=== PATIENT | male | born 1965 | race Caucasian/White ===

== ENCOUNTER 2024-04-11 23:03 | Inpatient (IN) | payer OTHER, SELFPAY ==
[2024-04-11 23:07] VITALS: BP 168/101; PULSE 78; RESP 18; TEMP 36.6; O2SAT 98; BMI 30.4
--- NOTE | 2024-04-11 23:07 | EKG_ITS ---
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
--- NOTE | 2024-04-11 23:12 | DI.RAD.S_ITS ---
PROCEDURE: XR CHEST 1V INDICATIONS: chest pain TECHNIQUE: One view of the chest was acquired. COMPARISON: None. FINDINGS: Surgical changes and devices: None. Lungs and pleura: Lungs are clear. No pleural effusions or pneumothorax. Mediastinum: Mediastinal contours appear normal. Heart size is normal. Bones and chest wall: No suspicious bony lesions. Overlying soft tissues appear unremarkable. IMPRESSION: No acute pulmonary process. Dictated by: Libertad Lee M.D. on 04/12/2024 at 0:14 Approved by: Libertad Lee M.D. on 04/12/2024 at 0:14
[2024-04-11] MEDS: ASPIRIN 81 MG CHEW TAB 324 MG PO (23:15)
[2024-04-11 23:33] LABS: Add Manual Diff / Slide Review NO; Basophils Absolute Auto 0 /uL (0-100); Basophils Percent Auto 0.8 % (0-2); Eosinophils Absolute Auto 100 /uL (0-450); Eosinophils Percent Auto 2.6 % (2-4); Hematocrit 42.8 % (41-53); Hemoglobin 14.8 g/dL (13.5-17.5); Lymphocytes Absolute Auto 2100 /uL (1100-4500); Lymphocytes Percent Auto 36.8 % (25-40); Mean Corpuscular HGB Conc 34.4 % (30-36); Mean Corpuscular Hemoglobin 31.7 PG (26-34); Mean Corpuscular Volume 92.1 fL (80-100); Monocytes Absolute Auto 500 /uL (0-900); Neutrophils Absolute Auto 3000 /uL (1500-7000); Neutrophils Percent Auto 51.8 % (50-75); Platelet Count 193 X10^3/uL (150-400); Red Blood Cell Count 4.65 X10^6/uL (4.5-5.9); Red Cell Distribution Width 12.9 % (11.6-14.8); White Blood Cell Count 5.8 X10^3/uL (4.5-11.0)
[2024-04-11 23:39] LABS: INR 0.9 (0.9-1.3); Prothrombin Time 10.6 SECONDS (9.4-12.5)
[2024-04-11 23:41] LABS: PTT Partial Thromboplastin Tim 35 SECONDS (25.1-36.5)
[2024-04-11 23:43] LABS: Alanine Aminotransferase 112 IU/L (<50); Albumin 4.1 g/dL (3.5-5.0); Albumin Globulin Ratio 1.5 (1.0-2.8); Alkaline Phosphatase 41 U/L (38-126); Aspartate Aminotransferase 64 IU/L (17-59); BUN Creatinine Ratio 17.9 (6-22); Bilirubin Total 0.5 mg/dL (0.2-1.3); Blood Urea Nitrogen 14 mg/dL (9-20); Calcium 8.7 mg/dL (8.4-10.2); Carbon Dioxide 29 mmol/L (22-32); Chloride 101 mmol/L (98-107); Creatine Kinase 146 U/L (55-170); Estimated Glomerular Filt Rate > 60 mL/min (>60); Globulin 2.8 g/dL (1.7-4.1); Glucose 160 mg/dL (80-110); HEMOLYSIS 32 (0-50); Lipase 54 U/L (23-300); Magnesium 1.9 mg/dL (1.6-2.3); Potassium 3.8 mmol/L (3.4-5.1); Sodium 134 mmol/L (137-145); Total Protein 6.9 g/dL (6.3-8.2)
[2024-04-11 23:55] LABS: NT-proBNP (BNP-Adult 18+) < 20 pg/mL (<125); Troponin I < 0.012 ng/mL (0.01-0.034)
[2024-04-11 23:59] VITALS: BP 147/88; PULSE 78; O2SAT 98
[2024-04-12] VITALS: BP 146/86; PULSE 78; O2SAT 96
--- NOTE | 2024-04-12 00:09 | ED_ITS ---
HPI - Chest Pain General Chief Complaint: Chest Pain Stated Complaint: chest pain Time Seen by Provider: 04/11/24 23:39 Source: patient Mode of arrival: Ambulatory Limitations: no limitations History of Present Illness HPI narrative: Patient is a 58-year-old male. History of hypertension. No prior cardiac history. States that over the past several weeks and then progressively worsening over the past several days he has had burning in his chest with exertion. He stated that he noticed it a couple days ago when he was hiking just prior to [place]. States he was going uphill. Had burning in his chest. Some mild shortness of breath. And then when he sat and relaxed his symptoms improved. He has seen his primary doctor and there is a referral for him to have a outpatient stress test but he was not yet scheduled this. He currently is asymptomatic. No fevers. No abdominal pain or nausea and vomiting. Has not tried anything for symptoms prior to arrival. Related Data Home Medications Medication Instructions Recorded Confirmed ibuprofen 800 mg tablet 800 mg PO Q8HP ##0 01/01/12 04/12/24 olmesartan 40 mg tablet 40 mg PO DAILY 04/12/24 04/12/24 Allergies Allergy/AdvReac Type Severity Reaction Status Date / Time ALL NARCOTICS Allergy Mild ITCHY Uncoded 07/26/17 11:54 Review of Systems Review of Systems ROS Unobtainable: All systems reviewed & are unremarkable except as noted in HPI and below Patient History Social History household members: spouse and children Smoking Status: Never smoker Smoking Status: Never smoker Exam Initial Vital Signs Initial Vital Signs: Vital Signs Temperature 98 F 04/11/24 23:07 Pulse Rate 78 04/11/24 23:07 Respiratory Rate 18 04/11/24 23:07 Blood Pressure 168/101 H 04/11/24 23:07 Pulse Oximetry 98 04/11/24 23:07 Oxygen Delivery Method Room Air 04/11/24 23:07 Const General: cooperative, comfortable and No ill appearing HENMT Head: normal to inspection and normocephalic Resp Effort & Inspection: normal respiratory effort Auscultation: clear to auscultation bilaterally Cardio Rate: regular rate Rhythm: regular rhythm Skin General: no rashes or lesions noted Neuro General: patient alert, patient awake, patient oriented x3 and moves all extremities Extrem General: No edema Course Orders Ordered: ED Orders 04/11/24 23:07 EKG-12 Lead Stat 04/11/24 23:12 XR chest 1V Stat 04/11/24 23:26 Complete Blood Count AUTO DIFF Stat Comprehensive Metabolic Panel Stat Lipase Stat Magnesium Stat NT-proBNP (BNP-Adult 18+) Stat PTT Partial Thromboplastin [place] Stat Prothrombin Time INR Stat Troponin & CK Cardiac Panel Stat 04/11/24 23:30 EKG-12 Lead Routine Acetaminophen (Acetaminophen 325 Mg Tablet) 650 mg PO Q6H PRN PRN Reason: Fever/Mild Pain (1-3) Enoxaparin Sodium (Enoxaparin 40 Mg/0.4 Ml Syringe) 40 mg SUBCUT DAILY SUSAN Lisinopril (Lisinopril 5 Mg Tablet) 5 mg PO DAILY SUSAN Morphine Sulfate (Morphine 4 Mg/Ml Inj) 3 mg IV Q2HR PRN PRN Reason: Pain, Severe (7-10) Naloxone HCl (Naloxone 0.4 Mg/Ml Vial) 0.2 mg IV Q2MIN PRN PRN Reason: Opiate Reversal Ondansetron HCl (Ondansetron 4 Mg/2 Ml Inj) 4 mg IV Q8HR PRN PRN Reason: Nausea And Vomiting Oxycodone HCl (Oxycodone Ir 5 Mg Tablet) 5 mg PO Q3H PRN PRN Reason: Pain, Moderate (4-6) Discontinued Medications Aspirin (Aspirin 81 Mg Chew Tab) 324 mg PO NOW ONE Stop: 04/11/24 23:13 Last Admin: 04/11/24 23:15 Dose: 243 mg Documented By: DAMARI Vital Signs Vital signs: Vital Signs - 8 hr 04/11/24 23:07 04/11/24 23:59 04/11/24 23:59 Temperature 98 F Pulse Rate 78 78 Respiratory Rate 18 Blood Pressure 168/101 H 147/88 H Pulse Oximetry 98 98 Oxygen Delivery Method Room Air 04/12/24 00:00 04/12/24 00:00 Temperature Pulse Rate 78 Respiratory Rate Blood Pressure 146/86 H Pulse Oximetry 96 Oxygen Delivery Method Room Air MDM - Chest Pain Lab Data Attestation: I reviewed the patient's lab results. 04/11/24 23:26 04/11/24 23:26 Labs: Lab Results 04/11/24 Range/Units 23:26 WBC 5.8 (4.5-11.0) X10^3/uL RBC 4.65 (4.5-5.9) X10^6/uL Hgb 14.8 (13.5-17.5) g/dL Hct 42.8 (41-53) % MCV 92.1 (80-100) fL MCH 31.7 (26-34) PG MCHC 34.4 (30-36) % RDW 12.9 (11.6-14.8) % Plt Count 193 (150-400) X10^3/uL Neut % (Auto) 51.8 (50-75) % Lymph % (Auto) 36.8 (25-40) % [place] % (Auto) 8.0 (3-14) % Eos % (Auto) 2.6 (2-4) % Baso % (Auto) 0.8 (0-2) % Neut # (Auto) 3000 (0153-1707) /uL Lymph # (Auto) 2100 (4632-8817) /uL [place] # (Auto) 500 (0-900) /uL Eos # (Auto) 100 (0-450) /uL Baso # (Auto) 0 (0-100) /uL PT 10.6 (9.4-12.5) SECONDS INR 0.9 (0.9-1.3) APTT 35 (25.1-36.5) SECONDS Sodium 134 L (137-145) mmol/L Potassium 3.8 (3.4-5.1) mmol/L Chloride 101 (98-107) mmol/L Carbon Dioxide 29 (22-32) mmol/L BUN 14 (9-20) mg/dL Creatinine 0.78 (0.66-1.25) mg/dL Estimated GFR > 60 (>60) mL/min BUN/Creatinine Ratio 17.9 (6-22) Glucose 160 H (80-110) mg/dL Calcium 8.7 (8.4-10.2) mg/dL Magnesium 1.9 (1.6-2.3) mg/dL Total Bilirubin 0.5 (0.2-1.3) mg/dL AST 64 H (17-59) IU/L ALT 112 H (<50) IU/L Alkaline Phosphatase 41 (38-126) U/L Total Creatine Kinase 146 (55-170) U/L Troponin I < 0.012 (0.01-0.034) ng/mL NT-Pro-B Natriuret Pep < 20 (<125) pg/mL Total Protein 6.9 (6.3-8.2) g/dL Albumin 4.1 (3.5-5.0) g/dL Globulin 2.8 (1.7-4.1) g/dL Albumin/Globulin Ratio 1.5 (1.0-2.8) Lipase 54 (23-300) U/L Imaging Data Chest x-ray: Radiologist's Impression: PROCEDURE: XR CHEST 1V INDICATIONS: chest pain TECHNIQUE: One view of the chest was acquired. COMPARISON: None. FINDINGS: Surgical changes and devices: None. Lungs and pleura: Lungs are clear. No pleural effusions or pneumothorax. Mediastinum: Mediastinal contours appear normal. Heart size is normal. Bones and chest wall: No suspicious bony lesions. Overlying soft tissues appear unremarkable. IMPRESSION: No acute pulmonary process. ECG Data Interpretation: Sinus rhythm Ventricular rate is 75 First-degree AV block CO interval of 2 on 2 milliseconds Normal QRS No ST T wave changes MDM Narrative Medical decision making narrative: Labs are unremarkable to include a negative troponin. Has a nonischemic EKG. Chest x-ray is unremarkable. He is asymptomatic. No fevers. He has a referral in to have an outpatient cardiac workup to include a stress test however I discussed the possibility of admitting him today for his exertional chest discomfort. Patient opted to be admitted to the hospital. I discussed the case with Dr. Harrison hospitalist on-call who will admit. Patient expressed understanding and agreement with plan. Discharge Plan Departure Patient Disposition: Admitted as Observation Clinical Impression: Chest pain, Hypertension Admit Date/Time: 04/12/24 00:16 Admit Provider: Yared Aleman
[2024-04-12 00:28] VITALS: BMI 30.4
--- NOTE | 2024-04-12 00:36 | P.HP_ITS ---
History of Present Illness History of Present Illness Date Patient Seen: 04/12/24 Chief complaint: chest pain Narrative: 58 y/o with PMH of HTN, developed episodic exertional dyspnea and burning-like pain across the chest earlier this summer. He was waiting for outpatient stress test that was pending scheduling.Today pain was stromger then usual and he decided to come to hospital. Initial ED workup negative for ACS. Placed in observation, on telemetry, for nuclear stress test in the morning. [facility] Social History household members: spouse and children Smoking Status: Never smoker Meds Home Medications and Allergies Home Medications Medication Instructions Recorded Confirmed Type ibuprofen 800 mg tablet 800 mg PO Q8HP ##0 01/01/12 04/12/24 History olmesartan 40 mg tablet 40 mg PO DAILY 04/12/24 04/12/24 History Allergies Allergy/AdvReac Type Severity Reaction Status Date / Time ALL NARCOTICS Allergy Mild ITCHY Uncoded 07/26/17 11:54 Review of Systems Constitutional Comments: w/o fever, chills, generalized weakness, weight changes Cardiovascular Comments: pressure, burning-like pain, exertional dyspnea Respiratory Comments: w/o cough Genitourinary Comments: w/o voiding difficulties Musculoskeletal Comments: w/o myalgia Hematologic/Lymphatic Comments: w/o easy bruising or bleeding Exam Vital Signs (past 8 hours): - 04/11/24 23:07 04/11/24 23:59 04/11/24 23:59 Temperature 98 F Pulse Rate 78 78 Respiratory Rate 18 Blood Pressure 168/101 H 147/88 H Pulse Oximetry 98 98 Oxygen Delivery Method Room Air 04/12/24 00:00 04/12/24 00:00 Temperature Pulse Rate 78 Respiratory Rate Blood Pressure 146/86 H Pulse Oximetry 96 Oxygen Delivery Method Room Air Oxygen Delivery Method Room Air Narrative Exam Narrative: in no distress, at bedside HENMT Other: normocephalic Neck Other: supple Resp Other: normal respiratory effort Cardio Other: RRR GI Other: w/o distension Skin Other: w/o rashes Neuro Other: w/o deficits Extrem Other: w/o swelling Psych Other: lucid, appropriate mood and affect Objective ECG Impression: NSR, non-ischemic Labs 04/11/24 23:26 04/11/24 23:26 Labs: Laboratory Results - last 24 hr 04/11/24 23:26 WBC 5.8 RBC 4.65 Hgb 14.8 Hct 42.8 MCV 92.1 MCH 31.7 MCHC 34.4 RDW 12.9 Plt Count 193 Neut % (Auto) 51.8 Lymph % (Auto) 36.8 [place] % (Auto) 8.0 Eos % (Auto) 2.6 Baso % (Auto) 0.8 Neut # (Auto) 3000 Lymph # (Auto) 2100 [place] # (Auto) 500 Eos # (Auto) 100 Baso # (Auto) 0 PT 10.6 INR 0.9 APTT 35 Sodium 134 L Potassium 3.8 Chloride 101 Carbon Dioxide 29 BUN 14 Creatinine 0.78 Estimated GFR > 60 BUN/Creatinine Ratio 17.9 Glucose 160 H Calcium 8.7 Magnesium 1.9 Total Bilirubin 0.5 AST 64 H ALT 112 H Alkaline Phosphatase 41 Total Creatine Kinase 146 Troponin I < 0.012 NT-Pro-B Natriuret Pep < 20 Total Protein 6.9 Albumin 4.1 Globulin 2.8 Albumin/Globulin Ratio 1.5 Lipase 54 Assessment & Plan Assessment and plan (1) Hypertension: Status: Acute (2) Chest pain: Status: Acute Assessment & Plan narrative: Chest Pain / Exertional Dyspnea - progressive - chest pain equivalent? - given ASA - lipids pending - placed in observation on telemetry - nuclear stress test pending HTN - started Lisinopril 10 mg daily - olmesartan 40 mg daily at home DVT prophylaxis - Lovenox Time-Based Coding :: [TOTAL MINUTES] spent with patient and on the chart (including review of chart, obtaining history, exam, reviewing outside data, placing orders, documenting exam and treatment plan, and counseling patient) on [DATE].
[2024-04-12 02:43] VITALS: BP 144/86; PULSE 74; RESP 20; TEMP 36.9; O2SAT 96
[2024-04-12 05:41] LABS: Cholesterol 230 mg/dL (140-199); HDL Cholesterol 40 mg/dL (40-60); LDL Cholesterol Calculated 169 mg/dL (<100); Triglycerides 107 mg/dL (35-150)
[2024-04-12 05:42] LABS: Hemoglobin A1C% w Est Avg Glu 5.6 % (4.0-6.0)
[2024-04-12 06:43] VITALS: BP 121/78; PULSE 71; RESP 20; TEMP 36.8; O2SAT 98
[2024-04-12 07:51] LABS: Troponin I 0.033 ng/mL (0.01-0.034)
[2024-04-12 09:06] LABS: Troponin I 0.027 ng/mL (0.01-0.034)
[2024-04-12 09:13] VITALS: BP 121/78; PULSE 71
[2024-04-12] MEDS: ENOXAPARIN 40 MG/0.4 ML SYRINGE SUBCUT (09:13)
[2024-04-12] MEDS: lisinopriL 10 MG TABLET PO (09:13)
--- NOTE | 2024-04-12 12:26 | CM.DANOTE ---
DCP Assessment Note: Pt is a 58yo male, resident of [place], is admitted for hypertension and chest pain. Pt lives in a house with his , Adri, and adult daughter. Pt's Primary Care Provider is Donna Kinsey NP at [facility] and insurance is [employer]. Reviewed chart and team rounds for pt's medical status and initial discharge needs. Per hospitalist, pt dc is pending stress test results and possible cardiology referral. DCP attempted to meet w/patient at bedside who was at [facility] at time, pt able to answer questions for assessment. Pt confirmed pt's living arrangements and reported a preference for discharge home after stress test as she discussed with provider. Pt confirmed pt is independent at baseline. Pt could not identify any needs for discharge. Plan: Anticipating discharge home with spouse, upon medical clearance post stress test. CM team will follow closely for coordination of discharge plans. Ashley Rogers [facility] Discharge Planning/Care Management CM Discharge Assessment Start: 04/12/24 12:25 Freq: Status: Active Protocol: Document 04/12/24 12:25 MW (Rec: 04/12/24 12:26 MW [id number]) Discharge Planning Assessment Assigned Cost And Risk Analysis Manager ANNA Ramirez DPOA/Assigned Designee Name Latasha Ennis, Spouse Contact Information [phone] Advance Directives? No History Provided By Family Member,Medical Record Has Patient been admitted in last 30 No days? Prior Living Arrangements House Household Members spouse,children Type of transporation used prior to Drives own vehicle admit Independent with ADL's Yes Is patient alert and oriented? Yes Caregiver for Another No Whiteboard Updated in Patient Room with Yes name and ext. # of Cost And Risk Analysis Manager Comment [phone] Review Status In Process Please Provide Date Initial DC 04/12/24 Assessment Was Performed Next Review Type Continued Stay Review
[2024-04-12] MEDS: HEPARIN 5,000 UNIT/ML VIAL 5000 UNIT IV (13:28)
[2024-04-12] MEDS: HEPARIN DRIP 25,000 UNIT/500 ML IV.SOLN 20 UNIT IV (13:36)
--- NOTE | 2024-04-12 13:47 | PM.DS.1 ---
History of Present Illness History of Present Illness Date Patient Seen: 04/12/24 Time Patient Seen: 09:25 Chief complaint: chest pain Narrative: 58 y/o with PMH of HTN, developed episodic exertional dyspnea and burning-like pain across the chest earlier this summer. He was waiting for outpatient stress test that was pending scheduling.Today pain was stromger then usual and he decided to come to hospital. Initial ED workup negative for ACS. Placed in observation, on telemetry, for nuclear stress test in the morning. Discharge Providers Provider Date of admission: 04/12/24 00:16 Discharge Date: 04/12/24 Primary care physician: Yaw Martinez MD Discharge provider: Raghavendra Cardenas MD Summary Hospital Course Discharge Diagnosis: 1. Unstable angina 2. Hypertension 3. Hyperlipidemia, with history of statin intolerance 4. History of tobacco use Hospital Course: 58-year-old man with hypertension and a history of cigar use, stopped over 2 years ago, experienced progressive anginal discomfort which developed on hunting trips starting in November, and became progressive with lower amounts of activity, experiencing rest discomfort yesterday with diaphoresis, was admitted and underwent cardiac stress testing and experienced anginal chest discomfort 2.5 minutes into the test, with peak heart rate 80 3% of predicted and stopping after 6.5 minutes, with anterior perfusion defect noted on imaging. Anginal chest discomfort resolved with rest and he is remained hemodynamically stable during hospitalization. He was treated with aspirin, beta-vic, statin and heparin infusion protocol. Certainly arrangements are being made for transfer to a tertiary care facility for urgent cardiac catheterization and probable stenting. The patient and his acknowledged understanding, agreement and appreciation of this plan of care and will be updated on status of transfer arrangements when available. Status at Discharge Cognitive/behavioral status at discharge: oriented Functional status at discharge: independent ambulation Overall status at discharge: patient is not back to baseline Exam Vital Signs (past 8 hours): - 04/12/24 06:43 04/12/24 09:13 Temperature 98.3 F Pulse Rate 71 71 Respiratory Rate 20 Blood Pressure 121/78 121/78 Pulse Oximetry 98 Oxygen Flow Rate 0 Oxygen Delivery Method Room Air Oxygen Flow Rate 0 Narrative Exam Narrative: GENERAL: This is a well-nourished, well-developed patient, in no apparent distress. EYES: Pupils equal round and reactive. Extraocular motions intact. No scleral icterus. No injection or drainage. ENT: Mucous membranes pink and moist. NECK: Trachea midline. No JVD, bruits or lymphadenopathy. Supple, nontender, no meningeal signs. CARDIOVASCULAR: Regular rate and rhythm without murmurs, gallops, or rubs. RESPIRATORY: Clear to auscultation. GASTROINTESTINAL: Abdomen soft, non-tender, nondistended. EXTREMITIES: No clubbing, cyanosis, or edema. NEUROLOGIC: Alert, oriented, speech fluent, full upper and lower motor strength, no focal deficits evident. DERMATOLOGIC: No rashes or skin lesions. Objective ECG Impression: Normal sinus rhythm at 79 beats per minute, no ischemic changes Imaging Chest x-ray: Radiologist's impression: No acute pulmonary process. NM myocardial perfusion scan:: Radiologist's impression: Preserved ejection fraction, anterior wall perfusion defect with stress imaging. Full report pending. Labs 04/11/24 23:26 04/11/24 23:26 Labs: Laboratory Results - last 24 hr 04/11/24 04/12/24 04/12/24 23:26 04:48 07:11 WBC 5.8 RBC 4.65 Hgb 14.8 Hct 42.8 MCV 92.1 MCH 31.7 MCHC 34.4 RDW 12.9 Plt Count 193 Neut % (Auto) 51.8 Lymph % (Auto) 36.8 [place] % (Auto) 8.0 Eos % (Auto) 2.6 Baso % (Auto) 0.8 Neut # (Auto) 3000 Lymph # (Auto) 2100 [place] # (Auto) 500 Eos # (Auto) 100 Baso # (Auto) 0 PT 10.6 INR 0.9 APTT 35 Sodium 134 L Potassium 3.8 Chloride 101 Carbon Dioxide 29 BUN 14 Creatinine 0.78 Estimated GFR > 60 BUN/Creatinine Ratio 17.9 Glucose 160 H Hemoglobin A1c 5.6 Calcium 8.7 Magnesium 1.9 Total Bilirubin 0.5 AST 64 H ALT 112 H Alkaline Phosphatase 41 Total Creatine Kinase 146 Troponin I < 0.012 0.033 NT-Pro-B Natriuret Pep < 20 Total Protein 6.9 Albumin 4.1 Globulin 2.8 Albumin/Globulin Ratio 1.5 Triglycerides 107 Cholesterol 230 H LDL Cholesterol, Calc 169 H HDL Cholesterol 40 Lipase 54 04/12/24 08:26 WBC RBC Hgb Hct MCV MCH MCHC RDW Plt Count Neut % (Auto) Lymph % (Auto) [place] % (Auto) Eos % (Auto) Baso % (Auto) Neut # (Auto) Lymph # (Auto) [place] # (Auto) Eos # (Auto) Baso # (Auto) PT INR APTT Sodium Potassium Chloride Carbon Dioxide BUN Creatinine Estimated GFR BUN/Creatinine Ratio Glucose Hemoglobin A1c Calcium Magnesium Total Bilirubin AST ALT Alkaline Phosphatase Total Creatine Kinase Troponin I 0.027 NT-Pro-B Natriuret Pep Total Protein Albumin Globulin Albumin/Globulin Ratio Triglycerides Cholesterol LDL Cholesterol, Calc HDL Cholesterol Lipase PFSH Social History household members: spouse and children Smoking Status: Never smoker Discharge Plan Discharge Plan Patient Disposition: [facility] Visit Report/Discharge Packet Stand Alone Forms: Patient Portal/API, Stroke Signs & Symptoms Discharge Data Primary Care Provider: Yaw Martinez Attending Provider: Yared Aleman Admit Date/Time: 04/12/24 00:16 Quality VTE Deep Vein Thrombosis/Pulmonary Embolism Present on Admission: No MIPS - DC The patient has a history of heart transplant or Left Ventricular Assist Device (LVAD). If yes, STOP here.: No The patient has current or prior documentation of left ventricular ejection fraction (LVEF) less than or equal to 40%, or moderate or severely depressed left ventricular systolic function.: No A. The patient was prescribed or already taking an Angiotensin-Converting Enzyme (CHELY) Inhibitor, or Angiotensin Receptor Vic (ARB).: No B. The patient was prescribed or already taking a beta-vic. [If Yes to Both A & B, STOP here]: Yes Patient not prescribed/taking CHELY or ARB, no reason given.: No Patient not prescribed/taking beta-vic, no reason given.: No PROFEE Charge Codes Discharge inpatient/observation: [id number]
[2024-04-12 14:00] VITALS: BP 121/80; PULSE 78; RESP 18; TEMP 36.6; O2SAT 97
[2024-04-12] MEDS: METOPROLOL IR 25 MG TABLET PO ×2 (14:27→20:35)
[2024-04-12] MEDS: ATORVASTATIN 20 MG TABLET 80 MG PO (14:27)
[2024-04-12] MEDS: ASPIRIN EC 325 MG TABLET PO (14:27)
[2024-04-12 14:48] LABS: Troponin I 0.054 ng/mL (0.01-0.034)
--- NOTE | 2024-04-12 17:02 | DI.NM.S_ITS ---
DATE OF SERVICE: 04/12/2024 NUCLEAR CARDIOLOGY MYOCARDIAL PERFUSION STUDY PROCEDURE: Exercise treadmill stress and rest myocardial perfusion imaging with gating to assess ejection fraction and regional wall motion. ORDERING PROVIDER: Raghavendra Cardenas MD INDICATIONS: The patient is a 58-year-old male with crescendo exertional chest discomfort and dyspnea. CARDIAC STRESS: The patient was able to exercise for 6 minutes 38 seconds on a standard Balbir protocol, suggesting moderately reduced exercise capacity with an AURORA of +21%, achieving 7.5 METs. He achieved a maximum heart rate of 133 bpm (83% of his predicted maximum). He had a normal blood pressure response. He developed chest burning at 2.5 minutes into exercise that progressed with continued exercise and resolved 5.5 minutes into recovery. His resting ECG shows sinus rhythm with normal ST segments. He develops 2 to [address] depression in the inferolateral leads with stress, consistent with an ischemic response. He had occasional isolated PVCs but no complex ventricular ectopy. At 4 minutes 30 seconds of exercise at a heart rate of 129 bpm, 27.5 mCi of technetium-99m Myoview was injected and he was imaged 15 minutes later using a gated SPECT acquisition protocol. Earlier in the day while at rest, he had been injected with 10.4 mCi of technetium-99m Myoview and was imaged 15 minutes later, again using a gated SPECT acquisition protocol. FINDINGS: RAW DATA: There is fair myocardial tracer uptake. The lung/heart ratio is normal at 0.28. The TID ratio is at the upper limits of normal at 1.21. QUANTITATED GATED SPECT: Post-stress ejection fraction is estimated at 55% with mild hypokinesis in the distal anterior wall extending to the apex. The resting ejection fraction is 66% with a resolution of the wall motion abnormality. His resting end-diastolic volume is mildly increased at 137 mL. MYOCARDIAL PERFUSION IMAGING: Post-stress supine images show a moderate perfusion defect in the [id number] anterior wall and anterior septum, extending to the apex in a pattern consistent with the LAD distribution and persists on the prone images and is fully reversible on the resting images, consistent with myocardial ischemia. IMPRESSION: 1. Abnormal myocardial perfusion study. 2. Moderate sized, moderate intensity, fully reversible perfusion defect consistent with myocardial ischemia in the LAD distribution. 3. Preserved left ventricular systolic function although with an exercise- induced anterior motion abnormality and borderline left ventricular dilatation, consistent with an ischemic response. Left ventricular volumes are mildly increased. 4. Moderately reduced exercise capacity with provokable angina and ECG changes consistent with ischemia. He had isolated PVCs and a borderline blunted chronotropic response to exercise. Som Ennis - MARY/shira/ANAI doc#: [id number]/job#: [id number] dd: 04/12/2024 13:04:00 dt: 04/12/2024 15:03:00 DICTATING MD/COPIES TO: Joseph Guerrero MD; , COPIES AMANDA: LETICIA; ; MD
[2024-04-12 19:39] LABS: PTT Partial Thromboplastin Tim 51 SECONDS (25.1-36.5)
[2024-04-12 20:05] VITALS: BP 110/63; PULSE 77; RESP 19; TEMP 36.3; O2SAT 97
[2024-04-13 00:20] VITALS: BP 105/60; PULSE 65; RESP 18; TEMP 37.2; O2SAT 98
[2024-04-13 01:46] LABS: PTT Partial Thromboplastin Tim 47 SECONDS (25.1-36.5)
[2024-04-13 04:17] VITALS: BP 109/70; PULSE 64; RESP 18; TEMP 36.6; O2SAT 96
[2024-04-13 07:58] LABS: PTT Partial Thromboplastin Tim 44 SECONDS (25.1-36.5)
[2024-04-13 08:00] VITALS: BP 119/81; PULSE 71; RESP 20; TEMP 36.4; O2SAT 99
[2024-04-13 09:32] VITALS: BP 119/81; PULSE 73
[2024-04-13] MEDS: ASPIRIN EC 325 MG TABLET PO (09:32)
[2024-04-13] MEDS: lisinopriL 10 MG TABLET PO (09:32)
[2024-04-13] MEDS: OXYCODONE IR 5 MG TABLET PO (09:32)
[2024-04-13] MEDS: METOPROLOL IR 25 MG TABLET PO (09:32)
--- NOTE | 2024-04-13 11:04 | CM.DPC ---
Addendum entered by ANNA Lucio 04/13/24 14:44: ADD: Per sharples machine operator, pt has been accepted for hospital transfer for higher level of care needs and bed available now and transport scheduled for 1500 today. BF Original Note: DCP Cont: Per MD, plan is still attempting to transfer patient for higher level of care needs for STEMI/Angina and MD has spoken with Ballast Cleaning Operator at both and [facility] and awaiting bed availability. sharples machine operator has been in contact with [facility] already this morning. ANNA Lucio
--- NOTE | 2024-04-13 11:52 | PM.PN.1 ---
Subjective Subjective Date Patient Seen: 04/13/24 Time Patient Seen: 08:57 Interval history: Discharge Diagnosis: 1. Unstable angina 2. Non STEMI due to 1. 2. Hypertension 3. Hyperlipidemia, with history of statin intolerance 4. History of tobacco use Hospital Course: 58-year-old man with hypertension and a history of cigar use, stopped over 2 years ago, experienced progressive anginal discomfort which developed on hunting trips starting in November, and became progressive with lower amounts of activity, experiencing rest discomfort yesterday with diaphoresis, was admitted and underwent cardiac stress testing and experienced anginal chest discomfort 2.5 minutes into the test, with peak heart rate 80 3% of predicted and stopping after 6.5 minutes, with anterior perfusion defect noted on imaging. Anginal chest discomfort resolved with rest and he is remained hemodynamically stable during hospitalization. He was treated with aspirin, beta-vic, statin and heparin infusion protocol. Certainly arrangements are being made for transfer to a tertiary care facility for urgent cardiac catheterization and probable stenting. The patient and his acknowledged understanding, agreement and appreciation of this plan of care and will be updated on status of transfer arrangements when available. Interval history: Patient reports no further chest pain, continuing on aspirin, beta-vic, statin and heparin infusion cardiac protocol. His troponin peaked at 0.054 yesterday. Transfer to tertiary facility for cardiac catheterization is pending with several calls out to multiple other facilities stating no bed availability at the time of this addendum. Exam Vital Signs (past 8 hours): - 04/13/24 04:17 04/13/24 08:00 04/13/24 09:32 Temperature 97.8 F 97.6 F Pulse Rate 64 71 73 Respiratory Rate 18 20 Blood Pressure 109/70 119/81 119/81 Pulse Oximetry 96 99 Oxygen Flow Rate 0 0 Oxygen Delivery Method Room Air Oxygen Flow Rate 0 Narrative Exam Narrative: GENERAL: This is a well-nourished, well-developed patient, in no apparent distress. EYES: Pupils equal round and reactive. Extraocular motions intact. No scleral icterus. No injection or drainage. ENT: Mucous membranes pink and moist. NECK: Trachea midline. No JVD, bruits or lymphadenopathy. Supple, nontender, no meningeal signs. CARDIOVASCULAR: Regular rate and rhythm without murmurs, gallops, or rubs. RESPIRATORY: Clear to auscultation. GASTROINTESTINAL: Abdomen soft, non-tender, nondistended. EXTREMITIES: No clubbing, cyanosis, or edema. NEUROLOGIC: Alert, oriented, speech fluent, full upper and lower motor strength, no focal deficits evident. DERMATOLOGIC: No rashes or skin lesions. Objective Imaging Draft report myocardial perfusion scan 04/12/2024:: Radiologist's impression: INDICATIONS: The patient is a 58-year-old male with crescendo exertional chest discomfort and dyspnea. CARDIAC STRESS: The patient was able to exercise for 6 minutes 38 seconds on a standard Balbir protocol suggesting moderately reduced exercise capacity with an AURORA of +21%, achieving 7.5 METs. He achieved a maximum heart rate of 133 bpm (83% of his predicted maximum). He had a normal blood pressure response. He developed chest burning at 2-1/2 minutes into exercise that progressed with continued exercise and resolved 5 minutes and 30 seconds into recovery. His resting ECG shows sinus rhythm with normal ST segments. He develops 2 to [address] depression in the inferolateral leads with stress, consistent with an ischemic response. He had occasional isolated PVCs, but no complex ventricular ectopy. At 4 minutes and 30 seconds of exercise at a heart rate of 129 bpm, 27.5 mCi of technetium-99m Myoview was injected and he was imaged 15 minutes later using a gated SPECT acquisition protocol. Earlier in the day while at rest, he had been injected with 10.4 mCi of technetium-99m Myoview and was imaged 15 minutes later, again using a gated SPECT acquisition protocol. FINDINGS: RAW DATA: There is fair myocardial tracer uptake. The lung/heart ratio is normal at 0.28. The TID ratio is at the upper limits of normal at 1.21. GATED STUDY: Quantitated gated SPECT: Post-stress ejection fraction is estimated at 55% with mild hypokinesis in the distal anterior wall extending to the apex. Resting ejection fraction is 66% with a resolution of this wall motion abnormality. His resting end-diastolic volume is mildly increased at 137 mL. MYOCARDIAL PERFUSION SCAN: Myocardial perfusion imaging: Post-stress supine images show a moderate perfusion defect in the [id number] anterior wall and anterior septum extending to the apex in a pattern consistent with the LAD distribution. This defect persists on the prone images and is fully reversible on the resting images, consistent with myocardial ischemia. IMPRESSION: 1. Abnormal myocardial perfusion study. 2. Moderate sized, moderate intensity, fully reversible perfusion defect consistent with myocardial ischemia in the LAD distribution. 3. Preserved left ventricular systolic function, although with an exercise-induced wall motion abnormality and borderline left ventricular dilatation, consistent with an ischemic response. Left ventricular volumes are mildly increased. 4. Moderately reduced exercise capacity with provokable angina and ischemic ECG changes, consistent with ischemia. He had isolated premature ventricular contractions and a borderline blunted chronotropic response to exercise. Labs 04/11/24 23:26 04/11/24 23:26 Labs: Laboratory Results - last 24 hr 04/12/24 04/12/24 04/13/24 14:15 19:25 01:29 APTT 51 H D 47 H Troponin I 0.054 H 04/13/24 07:30 APTT [address] [facility] Social History household members: spouse and children Smoking Status: Never smoker Assessment & Plan Assessment & Plan narrative: 1. Unstable angina, currently chest pain-free. 2. Non STEMI due to 1. 2. Hypertension 3. Hyperlipidemia, with history of statin intolerance 4. History of tobacco use Plan: -continue current regimen as above -transferred to tertiary level facility as soon as possible Time-Based Coding :: [TOTAL MINUTES] spent with patient and on the chart (including review of chart, obtaining history, exam, reviewing outside data, placing orders, documenting exam and treatment plan, and counseling patient) on [DATE]. Quality VTE Deep Vein Thrombosis/Pulmonary Embolism Present on Admission: No MIPS - Admit I confirm the patient?s Advance Care Plan is present, Code status is documented, Surrogate decision maker is in patient?s record [If Yes, STOP here]: Yes MIPS - Meds 'Current medications' to include all prescriptions, [id number] products, herbals, cannabis/cannabidiol products, and vitamin/mineral/dietary (nutritional) supplements. I have utilized all available resources to obtain, update, or review the patient?s current medications. [If Yes, STOP here]: Yes MIPS - DC The patient has a history of heart transplant or Left Ventricular Assist Device (LVAD). If yes, STOP here.: No The patient has current or prior documentation of left ventricular ejection fraction (LVEF) less than or equal to 40%, or moderate or severely depressed left ventricular systolic function.: No A. The patient was prescribed or already taking an Angiotensin-Converting Enzyme (CHELY) Inhibitor, or Angiotensin Receptor Vic (ARB).: Yes B. The patient was prescribed or already taking a beta-vic. [If Yes to Both A & B, STOP here]: Yes Patient not prescribed/taking CHELY or ARB, no reason given.: No Patient not prescribed/taking beta-vic, no reason given.: No
[2024-04-13] MEDS: HEPARIN DRIP 25,000 UNIT/500 ML IV.SOLN 21.972 UNIT IV (14:24)
[2024-04-13 14:30] VITALS: BP 109/64; PULSE 80; RESP 18; TEMP 36.7; O2SAT 97
--- NOTE | 2024-04-13 14:44 | PC.NURSE ---
Report given to KAMLESH Ryan at [facility] at 1435.
[2024-04-13 14:53] LABS: PTT Partial Thromboplastin Tim 40 SECONDS (25.1-36.5)
--- NOTE | 2024-04-13 15:08 | PC.NURSE ---
RN to RN report given to Ambulance critical care nurse at 1500. Gave transport crew transfer packet. All questions answered. The pt was able to ambulate from hospital bed onto ambulance gurney. Pt's 20G L AC IV patent and infusing heparin at 11.1 units/kg/hour. VSS. Afebrile. Pt able to make needs known. Pt wearing his shoes/slippers, shorts, and had his cellphone in his short pocket. carried other belongings including shirt, cellphone opener verifier packer customs, and snacks with her once was transported.
== END 2024-04-13 15:10 | disposition short-term general hospital (02) | DRG 282 ==
LOC: ED 04-12 00:16 → AC 04-12 00:16
PROVIDERS: Internal Medicine; Admitting Provider Internal Medicine; Emergency Provider Emergency Medicine; Family Provider Family Medicine; PCP Internal Medicine; Visit Provider Internal Medicine
DX: I21.4 Non-ST elevation (NSTEMI) myocardial infarction (principal); I10 Essential (primary) hypertension; E78.5 Hyperlipidemia, unspecified; Z87.891 Personal history of nicotine dependence
CPT/HCPCS: 36415; 71045; 78452; 80053; 80061; 82550; 83036; 83690; 83735; 83880; 84484; 85025; 85610; 85730; 93005; 93017; 99284; G0378; A9502; J1644; J1650

== ENCOUNTER → 2024-06-20 15:05 | Outpatient (CLI) | payer OTHER, SELFPAY ==
--- NOTE | 2024-06-20 15:07 | DI.MRI.S_ITS ---
PROCEDURE: MR ANKLE LT WO CON INDICATIONS: PAIN IN LEFT FOOT-ACHILLES TENDINITIS TECHNIQUE: Noncontrast sagittal T1 spin echo and T2 fast spin echo with fat saturation, axial proton density fast spin echo and T2 fast spin echo with fat saturation, coronal T1 spin echo and T2 fast spin echo with fat saturation through the ankle/hindfoot. COMPARISON: None. FINDINGS: Image quality: Excellent Tendons: Mild tenosynovitis of the posterior tibialis. The flexor digitorum longus, and the flexor hallucis longus are unremarkable. The extensor tendons tendons unremarkable. Moderate tenosynovitis of the peroneal longus, at the level of the lateral malleolus. Longitudinal split tear of the peroneal brevis. Small posterior calcaneal enthesophyte with associated marrow edema, representing enthesitis. No high-grade tear of the distal Achilles tendon. Ligaments: The anterior and posterior tibiofibular ligament are intact. Thickening of the anterior talofibular ligament, representing prior sprain. The posterior talofibular ligament is intact. The calcaneofibular ligament is intact. The deep portion of the deltoid ligament is intact. Sinus tarsi: No fibrosis Plantar fascia: Unremarkable Muscles: Normal in signal Bones: Mild subchondral marrow edema in the anterior tibial plafond, and mild subchondral cystic changes in the anterior talus dome, raising concern for anterior ankle impingement. Mild degenerative changes in the 3rd tarsometatarsal joint, with mild subchondral marrow edema. No acute fracture. Small tibiotalar effusion. Small effusion in the posterior subtalar joint. IMPRESSION: 1. Mild tenosynovitis of the posterior tibialis and moderate tenosynovitis of the peroneal longus. 2. Longitudinal split tear of the peroneal brevis. 3. Small posterior calcaneal enthesophyte with enthesitis. No high-grade tear of the distal Achilles tendon. 4. Findings concerning for anterior ankle impingement with associated mild subchondral marrow edema in the anterior tibial plafond and in the anterior talus dome. 5. Mild degenerative changes of the 3rd tarsometatarsal joint. Dictated by: Cassie Machado M.D. on 06/20/2024 at 16:13 Approved by: Cassie Machado M.D. on 06/20/2024 at 16:24
== END ==
LOC: MRI 15:06
PROVIDERS: Family Provider Family Medicine; PCP Nurse Practitioner Family; Referring Provider Podiatrist; Visit Provider Podiatrist
DX: M76.62 Achilles tendinitis, left leg (principal); M76.72 Peroneal tendinitis, left leg; M79.672 Pain in left foot; S96.812A Strain of other specified muscles and tendons at ankle and foot level, left foot, initial encounter
CPT/HCPCS: 73721

== ENCOUNTER 2024-09-11 14:15 | Outpatient (RCR) | payer OTHER, SELFPAY | END 2024-09-11 16:15 | LOC: CAR 14:15 | PROVIDERS: Family Provider Family Medicine; PCP Internal Medicine; Referring Provider Internal Medicine Cardiovascular Disease; Visit Provider Internal Medicine Cardiovascular Disease | DX: R07.9 Chest pain, unspecified (principal) | CPT/HCPCS: 93798 ==

== ENCOUNTER 2024-11-13 13:48 | Emergency (ER) | payer OTHER, SELFPAY ==
[2024-11-13 13:58] VITALS: BP 138/84; PULSE 74; RESP 17; TEMP 36.7; O2SAT 97; BMI 29.7
--- NOTE | 2024-11-13 14:15 | DI.US.S_ITS ---
PROCEDURE: US ABDOMEN LIMITED INDICATIONS: RUQ- gall bladder TECHNIQUE: Real-time scanning was performed of the abdominal and retroperitoneal organs, with image documentation. COMPARISON: None. FINDINGS: Liver: Liver is normal in size and homogeneous in echotexture. Gallbladder: No gallstones. No gallbladder wall thickening or pericholecystic fluid. No sonographic Leone sign. Biliary ducts: Intrahepatic bile ducts are non-dilated. Extrahepatic bile duct caliber measures 4 mm. Normal is 6-7 mm or less in diameter, or 10 mm or less post-cholecystectomy. Pancreas: Visualized portions of the pancreas are sonographically normal. IVC: Intrahepatic inferior vena cava is patent. Miscellaneous: No free abdominal fluid. IMPRESSION: Unremarkable ultrasound examination of right upper quadrant abdomen. Dictated by: Tip Tomlin M.D. on 11/13/2024 at 15:10 Approved by: Tip Tomlin M.D. on 11/13/2024 at 15:10
--- NOTE | 2024-11-13 14:18 | EKG_ITS ---
[facility] [address], [place] [address] Test Date: 2024-11-13 Pat Name: Som Ennis Department: [facility] Room: Gender: Male [employer] [place]er: : 1965 Requested By: Order Number: [id number] Reading MD: Carlito Kay Measurements Intervals [place] Rate: 65 P: 53 [place]: 208 QRS: 52 QRSD: 84 T: 57 QT: 390 QTc: 405 Interpretive Statements Normal sinus rhythm Electronically Signed On 11-22-2024 13:49:31 PDT by Carlito Kay
[2024-11-13 14:46] LABS: Add Manual Diff / Slide Review NO; Hematocrit 42.9 % (41-53); Hemoglobin 14.9 g/dL (13.5-17.5); Lymphocytes Absolute Auto 1800 /uL (1100-4500); Mean Corpuscular HGB Conc 34.6 % (30-36); Mean Corpuscular Hemoglobin 31.4 PG (26-34); Mean Corpuscular Volume 90.6 fL (80-100); Platelet Count 232 X10^3/uL (150-400)
[2024-11-13 14:50] LABS: Alanine Aminotransferase 41 IU/L (<50); Albumin 4.9 g/dL (3.5-5.0); Albumin Globulin Ratio 1.7 (1.0-2.8); Alkaline Phosphatase 56 U/L (38-126); Blood Urea Nitrogen 17 mg/dL (9-20); Calcium 9.5 mg/dL (8.4-10.2); Carbon Dioxide 27 mmol/L (22-32); Chloride 102 mmol/L (98-107); Estimated Glomerular Filt Rate > 60 mL/min (>60); Globulin 2.9 g/dL (1.7-4.1); Glucose 78 mg/dL (70-99); HEMOLYSIS < 15 (0-50); Lipase 48 U/L (23-300); Potassium 4.4 mmol/L (3.4-5.1); Sodium 138 mmol/L (137-145); Total Protein 7.8 g/dL (6.3-8.2)
--- NOTE | 2024-11-13 15:52 | DI.RAD.S_ITS ---
PROCEDURE: XR CHEST 2V INDICATIONS: right upper quadrant pain, worse with inspiration/right lung TECHNIQUE: 2 views of the chest were acquired. COMPARISON: [facility], CR, XR CHEST 1V, 04/11/2024, 23:11. FINDINGS: Surgical changes and devices: None. Lungs and pleura: Lungs are clear. No pleural effusions or pneumothorax. Mediastinum: Mediastinal contours are normal. Heart size is normal. Bones and chest wall: No suspicious bony abnormalities. Soft tissues appear unremarkable. IMPRESSION: No acute cardiopulmonary pathology. Dictated by: Tip Tomlin M.D. on 11/13/2024 at 16:28 Approved by: Tip Tomlin M.D. on 11/13/2024 at 16:28
--- NOTE | 2024-11-13 15:52 | DI.CT.S_ITS ---
PROCEDURE: CT ABDOMEN PELVIS W CON INDICATIONS: RUQ pain, US negative TECHNIQUE: After the administration of intravenous contrast, axial sections acquired from the lung bases to the pubic symphysis. Coronal and sagittal reformats were performed. For radiation dose reduction, the following was used: automated exposure control, adjustment of mA and/or kV according to patient size. COMPARISON: [facility], CR, XR CHEST 2V, 11/13/2024, 15:53. [facility], US, US ABDOMEN LIMITED, 11/13/2024, 14:37. FINDINGS: Image quality: Diagnostic. Lower Chest: No significant findings. ABDOMEN: Liver: No solid mass. Gallbladder: A layering gallstone can be seen within the gallbladder. No additional CT findings of cholecystitis are seen. Biliary ducts: No biliary dilation. Pancreas: No ductal dilation. Spleen: Size is within normal limits. Adrenal Glands: No adrenal nodules. Kidneys and Ureters: No hydronephrosis. No solid mass. No complex renal cystic lesion which requires follow up. Stomach and Bowel: Normal colonic caliber, without significant wall thickening. Colonic diverticulosis is seen, without findings of active diverticulitis. A normal appendix is noted. No dilated loops of small bowel are seen. Peritoneum: No abnormal intraperitoneal fluid. No free air. Ventral Wall: No significant ventral hernia. Abdominal Nodes: No retroperitoneal or mesenteric adenopathy by size criteria. Vessels: Aorta and inferior vena cava are normal in size. PELVIS: Pelvic Organs: Unremarkable. Bladder: No bladder wall thickening, accounting for underdistention. Pelvic Nodes: No enlarged lymph nodes. Miscellaneous: No inguinal hernias are seen. Bones: No aggressive osseous abnormality. Focal L4-L5 degenerative change is seen. Milder degenerative changes are seen elsewhere. IMPRESSION: Layering gallstone seen within the gallbladder, without additional CT findings of cholecystitis. No biliary ductal dilatation. Normal appendix. Additional findings: Diverticulosis, without active diverticulitis Focal L4-L5 degenerative change Dictated by: Louis Howell M.D. on 11/13/2024 at 15:27 Approved by: Louis Howell M.D. on 11/13/2024 at 15:29
--- NOTE | 2024-11-13 17:27 | ED_ITS ---
HPI - Abdominal Pain <Petra Arceo PA-C - Last Filed: 11/13/24 19:13> General Chief Complaint: Abdominal Pain Stated Complaint: right sided abd pain Time Seen by Provider: 11/13/24 17:26 Source: patient Mode of arrival: Ambulatory History of Present Illness HPI narrative: Mr. Ennis is a pleasant 58-year-old male with a past medical history of hypertension, CAD with stent who presents to the emergency department for right upper quadrant abdominal pain x 1 week. Three weeks ago he had right upper quadrant pain radiating to his back that lasted 3 days then went away however 1 week ago it came again and has persisted. He was supposed to have an outpatient ultrasound this evening to check on his gallbladder however he came to the ER because symptoms got worse. At this time he reports pain in the right upper quadrant of his abdomen that is also on the right lateral rib region spreading to the back. Pain is worse with standing up and taking a deep breath. Pain is not associated with any other symptoms such as chest pain, nausea, vomiting, diarrhea, constipation, fevers, chills, coughing. No prior abdominal surgeries. Related Data Home Medications ?Medication ?Instructions ?Recorded ?Confirmed ibuprofen 800 mg tablet 800 mg PO Q8HP ##0 01/01/12 04/12/24 olmesartan 40 mg tablet 40 mg PO DAILY 04/12/2403/18 Allergies Allergy/AdvReac Type Severity Reaction Status Date / Time ALL NARCOTICS Allergy Mild ITCHY Uncoded 11/13/24 14:00 Review of Systems <Petra Arceo PA-C - Last Filed: 11/13/24 19:13> Review of Systems ROS Unobtainable: All systems reviewed & are unremarkable except as noted in HPI and below Patient History <Petra Arceo PA-C - Last Filed: 11/13/24 19:13> Social History household members: spouse and children Exam <Petra Arceo PA-C - Last Filed: 11/13/24 19:13> Narrative Exam Narrative: GENERAL: 58 year old patient appears stated age. Well-developed patient, in no acute distress. HEAD: Atraumatic. Normocephalic. EYES: No scleral icterus. No injection or drainage. NECK: Trachea midline. Cervical ROM intact. CARDIOVASCULAR: Regular rate and rhythm. RESPIRATORY: ?Nonlabored respirations. ?Speaking in clear, full sentences. ?Clear to auscultation. Breath sounds equal bilaterally. No wheezes, rales, or rhonchi. ? GASTROINTESTINAL: Abdomen soft, non-tender, nondistended. BS present. Subjective pain and right upper quadrant however there was no reproducible tenderness, negative Leone's sign. No tenderness overlying the ribcage either. EXTREMITIES: No edema or joint tenderness. BACK: No CVA tenderness. NEURO: AOx3. ?Clear speech. ?Moves all 4 extremities appropriately. SKIN: No rash or erythema of visible areas Initial Vital Signs Initial Vital Signs: Vital Signs Temperature 98.1 F 11/13/24 13:58 Pulse Rate 74 11/13/24 13:58 Respiratory Rate 17 11/13/24 13:58 Blood Pressure 138/84 11/13/24 13:58 Pulse Oximetry 97 11/13/24 13:58 Oxygen Delivery Method Room Air 11/13/24 13:58 <Bo Hernandez MD - Last Filed: 11/14/24 07:46> Initial Vital Signs Initial Vital Signs: Vital Signs Temperature 98.1 F 11/13/24 13:58 Pulse Rate 74 11/13/24 13:58 Respiratory Rate 17 11/13/24 13:58 Blood Pressure 138/84 11/13/24 13:58 Pulse Oximetry 97 11/13/24 13:58 Oxygen Delivery Method Room Air 11/13/24 13:58 Course <Petra Arceo PA-C - Last Filed: 11/13/24 19:13> Orders Ordered: Discontinued Medications Ondansetron HCl (Ondansetron 4 Mg/2 Ml Inj) 4 mg IV NOW PRN PRN Reason: Nausea And Vomiting Ondansetron HCl (Ondansetron 4 Mg Odt) 4 mg PO NOW PRN PRN Reason: Nausea And Vomiting Vital Signs Vital signs: Vital Signs - 8 hr 11/13/24 13:58 Temperature 98.1 F Pulse Rate 74 Respiratory Rate 17 Blood Pressure 138/84 Pulse Oximetry 97 Oxygen Delivery Method Room Air <Bo Hernandez MD - Last Filed: 11/14/24 07:46> Orders Ordered: Discontinued Medications Ondansetron HCl (Ondansetron 4 Mg/2 Ml Inj) 4 mg IV NOW PRN PRN Reason: Nausea And Vomiting Ondansetron HCl (Ondansetron 4 Mg Odt) 4 mg PO NOW PRN PRN Reason: Nausea And Vomiting Vital Signs Vital signs: Vital Signs - 8 hr 11/13/24 13:58 Temperature 98.1 F Pulse Rate 74 Respiratory Rate 17 Blood Pressure 138/84 Pulse Oximetry 97 Oxygen Delivery Method Room Air MDM - Abdominal Pain <Petra C JOAN Arceo - Last Filed: 11/13/24 19:13> Medical Records Attestation: I reviewed the patient's medical records. Lab Data 11/13/24 14:30 11/13/24 14:30 Labs: Lab Results 11/13/24 Range/Units 14:30 WBC 5.9 (4.5-11.0) X10^3/uL RBC 4.73 (4.5-5.9) X10^6/uL Hgb 14.9 (13.5-17.5) g/dL Hct 42.9 (41-53) % MCV 90.6 (80-100) fL MCH 31.4 (26-34) PG MCHC 34.6 (30-36) % RDW 13.1 (11.6-14.8) % Plt Count 232 (150-400) X10^3/uL Neut % (Auto) 59.5 (50-75) % Lymph % (Auto) 30.1 (25-40) % [place] % (Auto) 8.2 (3-14) % Eos % (Auto) 1.6 L (2-4) % Baso % (Auto) 0.6 (0-2) % Neut # (Auto) 3500 (5473-2794) /uL Lymph # (Auto) 1800 (1552-4377) /uL [place] # (Auto) 500 (0-900) /uL Eos # (Auto) 100 (0-450) /uL Baso # (Auto) 0 (0-100) /uL D-Dimer < 215 (<500) ng/ml Sodium 138 (137-145) mmol/L Potassium 4.4 (3.4-5.1) mmol/L Chloride 102 (98-107) mmol/L Carbon Dioxide 27 (22-32) mmol/L BUN 17 (9-20) mg/dL Creatinine 0.79 (0.66-1.25) mg/dL Estimated GFR > 60 (>60) mL/min BUN/Creatinine Ratio 21.5 (6-22) Glucose 78 (70-99) mg/dL Calcium 9.5 (8.4-10.2) mg/dL Total Bilirubin 0.6 (0.2-1.3) mg/dL AST 43 (17-59) IU/L ALT 41 (<50) IU/L Alkaline Phosphatase 56 (38-126) U/L Total Protein 7.8 (6.3-8.2) g/dL Albumin 4.9 (3.5-5.0) g/dL Globulin 2.9 (1.7-4.1) g/dL Albumin/Globulin Ratio 1.7 (1.0-2.8) Lipase 48 (23-300) U/L Point of care testing: Urine Dip Bedside Urine Glucose Negative Bedside Urine Bilirubin - Negative Bedside Urine Ketone - Negative Urine Specific [place] 1.010 Bedside Urine Occult Blood - Negative Bedside Urine pH 6.5 Bedside Urine Protein - Negative Bedside Urine Urobilinogen - Negative Bedside Urine Nitrite - Negative Bedside Urine Leukocytes - Negative Esterase Imaging Data Chest x-ray: Radiologist's Impression: PROCEDURE: XR CHEST 2V INDICATIONS: right upper quadrant pain, worse with inspiration/right lung TECHNIQUE: 2 views of the chest were acquired. COMPARISON: [facility], , XR CHEST 1V, 04/11/2024, 23:11. FINDINGS: Surgical changes and devices: None. Lungs and pleura: Lungs are clear. No pleural effusions or pneumothorax. Mediastinum: Mediastinal contours are normal. Heart size is normal. Bones and chest wall: No suspicious bony abnormalities. Soft tissues appear unremarkable. IMPRESSION: No acute cardiopulmonary pathology. Dictated by: Tip Tomlin M.D. on 11/13/2024 at 16:28 Approved by: Tip Tomlin M.D. on 11/13/2024 at 16:28 RUQ US: Radiologist's Impression: PROCEDURE: US ABDOMEN LIMITED INDICATIONS: RUQ- gall bladder TECHNIQUE: Real-time scanning was performed of the abdominal and retroperitoneal organs, with image documentation. COMPARISON: None. FINDINGS: Liver: Liver is normal in size and homogeneous in echotexture. Gallbladder: No gallstones. No gallbladder wall thickening or pericholecystic fluid. No sonographic Leone sign. Biliary ducts: Intrahepatic bile ducts are non-dilated. Extrahepatic bile duct caliber measures 4 mm. Normal is 6-7 mm or less in diameter, or 10 mm or less post-cholecystectomy. Pancreas: Visualized portions of the pancreas are sonographically normal. IVC: Intrahepatic inferior vena cava is patent. Miscellaneous: No free abdominal fluid. IMPRESSION: Unremarkable ultrasound examination of right upper quadrant abdomen. Dictated by: Tip Tomlin M.D. on 11/13/2024 at 15:10 Approved by: Tip Tomlin M.D. on 11/13/2024 at 15:10 CT scan - abdomen/pelvis: Radiologist's Impression: PROCEDURE: CT ABDOMEN PELVIS W CON INDICATIONS: RUQ pain, US negative TECHNIQUE: After the administration of intravenous contrast, axial sections acquired from the lung bases to the pubic symphysis. Coronal and sagittal reformats were performed. For radiation dose reduction, the following was used: automated exposure control, adjustment of mA and/or kV according to patient size. COMPARISON: [facility], CR, XR CHEST 2V, 11/13/2024, 15:53. [facility], US, US ABDOMEN LIMITED, 11/13/2024, 14:37. FINDINGS: Image quality: Diagnostic. Lower Chest: No significant findings. ABDOMEN: Liver: No solid mass. Gallbladder: A layering gallstone can be seen within the gallbladder. No additional CT findings of cholecystitis are seen. Biliary ducts: No biliary dilation. Pancreas: No ductal dilation. Spleen: Size is within normal limits. Adrenal Glands: No adrenal nodules. Kidneys and Ureters: No hydronephrosis. No solid mass. No complex renal cystic lesion which requires follow up. Stomach and Bowel: Normal colonic caliber, without significant wall thickening. Colonic diverticulosis is seen, without findings of active diverticulitis. A normal appendix is noted. No dilated loops of small bowel are seen. Peritoneum: No abnormal intraperitoneal fluid. No free air. Ventral Wall: No significant ventral hernia. Abdominal Nodes: No retroperitoneal or mesenteric adenopathy by size criteria. Vessels: Aorta and inferior vena cava are normal in size. PELVIS: Pelvic Organs: Unremarkable. Bladder: No bladder wall thickening, accounting for underdistention. Pelvic Nodes: No enlarged lymph nodes. Miscellaneous: No inguinal hernias are seen. Bones: No aggressive osseous abnormality. Focal L4-L5 degenerative change is seen. Milder degenerative changes are seen elsewhere. IMPRESSION: Layering gallstone seen within the gallbladder, without additional CT findings of cholecystitis. No biliary ductal dilatation. Normal appendix. Additional findings: Diverticulosis, without active diverticulitis Focal L4-L5 degenerative change Dictated by: Louis Howell M.D. on 11/13/2024 at 15:27 Approved by: Louis Howell M.D. on 11/13/2024 at 15:29 ECG Data Interpretation: ECG reveals normal sinus rhythm with a rate of 65 beats per minute, normal axis MDM Narrative Medical decision making narrative: 58-year-old male with a past medical history of hypertension, CAD with stent who presents to the emergency department for right upper quadrant abdominal pain x 1 week. Differential diagnosis includes but is not limited to biliary colic, cholelithiasis, cholecystitis, pancreatitis, gastritis, pyelonephritis, nephrolithiasis, ureterolithiasis, UTI, constipation, colitis, pneumonia, costochondritis, PE etc. On exam the patient is in no acute distress, nontoxic appearing, vital signs within normal limits. Lab work and imaging obtained prior to my evaluation. Patient has subjective right upper quadrant abdominal pain but no tenderness, negative Leone's sign. ECG obtained reveals normal sinus rhythm. Initially an ultrasound was obtained in triage which was negative so a CT abdomen and pelvis was obtained. A CT reveals layering gallstones seen within the gallbladder without additional CT findings of cholecystitis. No biliary ductal dilatation. Chest x-ray negative. Point of care urinalysis negative. Labs reveal normal WBC count 5.9, hemoglobin 14.9, hematocrit 42.9. Platelets 232. Negative D- dimer. Normal sodium 138, potassium 4.4, BUN 17 creatinine 0.79. Glucose 78. Normal LFTs. Normal lipase. All imaging results were printed and discussed with the patient his including all incidental findings. Lab work, imaging and physical exam all reassuring. At this time discussed with the patient diagnosis of biliary colic/cholelithiasis, recommended low-fat diet, follow up with General surgery for elective cholecystectomy. Discussed strict ER return precautions. Advised Tylenol for pain, ibuprofen sparingly, patient declines the need for opiate pain medication. Patient and his verbalized understanding of all information or happy with the plan, tolerates p.o., abdominal exam benign, he is stable for discharge home. <Bo Hernandez MD - Last Filed: 11/14/24 07:46> Lab Data Labs: Lab Results 11/13/24 Range/Units 14:30 WBC 5.9 (4.5-11.0) X10^3/uL RBC 4.73 (4.5-5.9) X10^6/uL Hgb 14.9 (13.5-17.5) g/dL Hct 42.9 (41-53) % MCV 90.6 (80-100) fL MCH 31.4 (26-34) PG MCHC 34.6 (30-36) % RDW 13.1 (11.6-14.8) % Plt Count 232 (150-400) X10^3/uL Neut % (Auto) 59.5 (50-75) % Lymph % (Auto) 30.1 (25-40) % [place] % (Auto) 8.2 (3-14) % Eos % (Auto) 1.6 L (2-4) % Baso % (Auto) 0.6 (0-2) % Neut # (Auto) 3500 (7432-4636) /uL Lymph # (Auto) 1800 (5561-7961) /uL [place] # (Auto) 500 (0-900) /uL Eos # (Auto) 100 (0-450) /uL Baso # (Auto) 0 (0-100) /uL D-Dimer < 215 (<500) ng/ml Sodium 138 (137-145) mmol/L Potassium 4.4 (3.4-5.1) mmol/L Chloride 102 (98-107) mmol/L Carbon Dioxide 27 (22-32) mmol/L BUN 17 (9-20) mg/dL Creatinine 0.79 (0.66-1.25) mg/dL Estimated GFR > 60 (>60) mL/min BUN/Creatinine Ratio 21.5 (6-22) Glucose 78 (70-99) mg/dL Calcium 9.5 (8.4-10.2) mg/dL Total Bilirubin 0.6 (0.2-1.3) mg/dL AST 43 (17-59) IU/L ALT 41 (<50) IU/L Alkaline Phosphatase 56 (38-126) U/L Total Protein 7.8 (6.3-8.2) g/dL Albumin 4.9 (3.5-5.0) g/dL Globulin 2.9 (1.7-4.1) g/dL Albumin/Globulin Ratio 1.7 (1.0-2.8) Lipase 48 (23-300) U/L Point of care testing: Urine Dip Bedside Urine Glucose Negative Bedside Urine Bilirubin - Negative Bedside Urine Ketone - Negative Urine Specific [place] 1.010 Bedside Urine Occult Blood - Negative Bedside Urine pH 6.5 Bedside Urine Protein - Negative Bedside Urine Urobilinogen - Negative Bedside Urine Nitrite - Negative Bedside Urine Leukocytes - Negative Esterase Discharge Plan Departure Patient Disposition: Home Clinical Impression: Biliary colic Cholelithiasis Qualifiers: Cholelithiasis location: gallbladder Cholecystitis presence: without cholecystitis Biliary obstruction: without biliary obstruction Qualified Code(s): K80.20 - Calculus of gallbladder without cholecystitis without obstruction Instructions: DI for Gallstones Activity Restrictions/Additional Instructions: Dear Loli, Thank you for coming to the emergency department. Today you were evaluated for right upper quadrant abdominal pain. Your imaging today revealed gallstones in the gallbladder but no secondary signs of gallbladder infection, inflammation or blockage. Your lab work was very reassuring and your urine did not reveal any blood or signs of infection. At this time your symptoms are consistent with biliary colic which is pain because of the gallstones. Please follow up with a general surgeon for further evaluation and management. Please rest, hydrate, use ibuprofen/Tylenol if needed for pain and decreased fat in the diet to help with the pain. You may use MiraLax if needed to help soften stools. Please return to the ER immediately if you develop fevers, yellowing of the skin, severe pain, persistent vomiting, chest pain or any other concerns. Please follow up with your primary care doctor within the next 2-3 days for ER follow-up. (If you do not have a PCP you can call [phone]. ?to schedule an appointment with an [facility] Primary Care Provider) IF YOU DEVELOP ANY NEW OR WORSENING SYMPTOMS, RETURN TO THE ER! Please read the attached instructions, they highlight more specific treatments and interventions for you at home. Thank you for letting me participate in your care, Petra Arceo PA-C Prescriptions: No Action ibuprofen 800 MG tablet 800 mg PO Q8HP Qty: 0 Patient Comments: only take when needed for body aches olmesartan 40 mg tablet 40 mg PO DAILY Referrals: Donna Kinsey, [employer] [Primary Care Provider, Nursing] Stand Alone Forms: Patient Portal/API ED Sign-out <Bo Hernandez MD - Last Filed: 11/14/24 07:46> Cosign ED Attending Cosignature Attestation: I was immediately available in the department for consultation. ?This documentation has been reviewed and I agree with assessment and plan. Supervised by Bo Hernandez MD
== END 2024-11-13 18:20 | disposition home or self-care (01) ==
PROVIDERS: Emergency Medicine; Emergency Provider Physician Assistant; PCP Nurse Practitioner Family
DX: K80.40 Calculus of bile duct with cholecystitis, unspecified, without obstruction (principal)
CPT/HCPCS: 36415; 71046; 74177; 76705; 80053; 81003; 83690; 85025; 85379; 93005; 99283; 99284; Q9967

== ENCOUNTER → 2025-04-03 09:13 | Outpatient (CLI) | payer OTHER, SELFPAY ==
--- NOTE | 2025-04-03 09:14 | DI.NM.S_ITS ---
PROCEDURE: NM EXERCISE TREADMILL NON NUC COMPARISON: None. INDICATIONS: coronary artery disease FINDINGS: Patient exercised per the standard Balbir protocol. Total exercise time was 9 minutes and 33 seconds. Test was terminated secondary to fatigue. Maximal heart rate attained is 156 bpm which is 98% of maximum. Heart rate. Maximum blood pressure was 176/100[place] [address]. [place] -10%. 10.1 METS. No ischemic changes noted. No arrhythmias present. No chest pains voiced. Normal heart rate and blood pressure response to exercise. IMPRESSION: 1. Negative exercise treadmill stress test for ischemia. 2. Good exercise capacity. Dictated by: Chema Tomlin M.D. on 04/03/2025 at 13:02 Approved by: Chema Tomlin M.D. on 04/03/2025 at 13:03
--- NOTE | 2025-04-03 09:14 | DI.ECHO.S_ITS ---
[place] +---------+ [facility] : : [address] : : [place] : : [id number] : : Phone: [phone] Echocardiogram Report + + :Name: MARE BAUTISTA Study Date: 04/03/2025 Height: 71 in : :[facility] ReadingLocation: Weight: 218 lb : : Gender: Male BSA: 2.2 m2 : :: 1965 Age: 59 yrs BP: 136/88 mmHg: :Reason For Study: CAD : :Ordering Physician: JESSICA TOMLIN Performed By: Duarte Padilla : :Referring: JESSICA TOMLIN : + + Interpretation Summary - The left ventricular contractility is normal. Estimated ejection fraction is greater than 60% with no segmental wall motion abnormalities. Mild concentric LVH. Normal diastolic function. - The right ventricular contractility is normal. - All cardiac chambers are of normal size. - No significant valvular abnormalities. - No obvious intracardiac shunts. - No obvious intracardiac masses nor thrombi. - No hemodynamically significant pericardial effusion. - Low right-sided filling pressures. Conclusion: Normal biventricular function with no significant valvular abnormalities. Procedure: A two-dimensional transthoracic echocardiogram with color flow and Doppler was performed. The study quality was technically adequate. There is no prior echocardiogram noted for this patient. The patient was in normal sinus rhythm during the exam. Left Ventricle: The left ventricle is normal in size. Left ventricular wall thickness is borderline increased. Left ventricular systolic function is normal. The ejection fraction is estimated to be 60-65%. There are no focal wall motion abnormalities. Normal diastolic function. Right Ventricle: The right ventricle is normal in size and function. Atria: The left atrial size is normal. Right atrial size is normal. There is no Doppler evidence for an interatrial shunt. Mitral Valve: The mitral valve leaflets appear to open well. There is no evidence of mitral valve prolapse. There is no mitral valve stenosis. There is trace mitral regurgitation. Aortic Valve: The aortic valve is trileaflet. The aortic valve opens well. There is no aortic valve stenosis. No aortic regurgitation is present. Tricuspid Valve: The tricuspid valve leaflets are thin and pliable. There is trace tricuspid regurgitation. The right ventricular systolic pressure is estimated to be at least 21 mmHg based on an estimated right atrial pressure of 3 mm Hg. Pulmonic Valve: The pulmonic valve is not well seen, but is grossly normal. There is a trace or physiologic amount of pulmonic regurgitation. Great Vessels: The aortic root is normal size. The ascending aorta is normal in size. The aortic arch could not be visualized. The pulmonary artery is not well visualized, but is probably normal size. The IVC is of normal diameter and collapses greater than 50% with a sniff. This suggests a low right atrial pressure of 3 mm Hg. Pericardium/ Pleura There is no pericardial effusion. MMode/2D Measurements & Calculations LVIDd: 4.2 cm LVOT diam: 2.3 cm LVIDs: 2.7 cm Ao root diam: 3.5 cm FS: 35.4 % asc Aorta Diam: 3.3 cm IVSd: 1.1 cm LVPWd: 1.1 cm LV badillo. diameter/BSA (cm/m^2): 1.9 LV sys. diameter/BSA (cm/m^2): 1.2 LA A2 area: 16.2 cm2 RA long axis: 5.1 cm LA A4 area: 19.8 cm2 RA area: 14.8 cm2 LA length (vol): 6.2 cm RA vol: 36.4 ml LA vol: 44.3 ml RA : 16.6 ml/m2 LA vol index: 20.3 ml/m2 IVC diam: 1.5 cm RVD1 (basal): 3.9 cm RVD2 (mid): 3.2 cm TAPSE: 2.5 cm Doppler Measurements & Calculations Ao V2 max: 139.9 cm/sec LVOT Max Benny: 92.5 cm/sec Ao V2 mean: 98.8 cm/sec LV V1 max P.4 mmHg Ao max P.8 mmHg LV V1 VTI: 15.2 cm Ao mean P.3 mmHg AMBER(I,D): 2.3 cm2 Ao V2 VTI: 26.8 cm AMBER(V,D): 2.7 cm2 sev ratio: 0.57 AMBER indexed to BSA (cm^2/m^2): 1.1 MV E max benny: 78.0 cm/sec TR max benny: 210.7 cm/sec MV A max benny: 81.2 cm/sec TR max P.8 mmHg MV E/A: 0.96 Med Peak E' Benny: 6.9 cm/sec E/E' med: 11.4 Lat Peak E' Benny: 7.3 cm/sec E/E' lat: 10.8 E/e' average: 11.1 MV dec time: 0.14 sec SV(LVOT): 62.0 ml Reading Physician:MARY
== END ==
LOC: NUCM 09:14
PROVIDERS: PCP Nurse Practitioner Family; Referring Provider Internal Medicine; Visit Provider Internal Medicine
DX: I25.118 Atherosclerotic heart disease of native coronary artery with other forms of angina pectoris (principal)
CPT/HCPCS: 93017; 93306